=== PATIENT | male | born 1965 | race Caucasian/White ===

== ENCOUNTER 2018-08-04 07:59 | Emergency (ER) | payer BC, SELFPAY ==
[2018-08-04 08:02] VITALS: BP 150/84; PULSE 89; RESP 12; TEMP 37.1; O2SAT 97
--- NOTE | 2018-08-04 09:30 | W.ED.GENAD ---
Discharge Plan Disposition Patient Disposition: HOME Condition: Good Discharge Details Chief Complaint: DentalOral Clinical Impression: Dental infection Primary Care Provider: Darion Sandhu ED Provider: Kevin Tracy Home Meds and New Rx's Prescriptions: New oxycodone-acetaminophen [Percocet] 5-325 mg tablet 1 tab PO .QHS PRN (Reason: pain) Qty: 7 RF: 0 amoxicillin 500 mg capsule 500 mg PO TID Qty: 30 RF: 0 No Action lisinopril-hydrochlorothiazide 1 EACH tablet 1 tab-cap PO DAILY Qty: 90 RF: 4 sildenafil [Viagra] 100 MG tablet 0.5 - 1 tab PO As Directed Qty: 6 RF: 5 Discharge Instructions Additional Instructions: Please f/u with dentist of your choice. Referrals: Segundo Mosher [DENTIST] - Marlena Mendoza DDS [DENTIST] - Luzma Reeder DDS [MD CONSULTING PHYSICIAN] - Medical Decision Making MDM Narrative Medical decision making narrative: Although I do not appreciate an abscess. At this point he is suspicious of occult dental infection. He does have chipped tooth and inflammation at the gum line/cheek. I prescribed Percocet and discussed risk versus benefits, he understood and signed consent. I prescribed Amoxicillin for the infection. Provided dental list and advised to f/u within a month. Advised to return to ED if symptoms worsen. Also advised to hold off on chewing tobacco until infection resolved. HPI - General Adult General Mode of arrival: ambulatory. Date/Time Provider Initiated Documentation: 08/04/18 09:30. Limitations to Documentation: no limitations. Information obtained by: patient. History of Present Illness 53 year old M presents to the emergency department with the chief complaint of Dental infection, described as moderate, Quality is described as aching, and is localized to the mouth (left upper dentition). Patient neck and reports radiation to. Patient started experiencing this day(s) (5) and it has been constant. Patient notes no other symptoms.. Patient did receive the following treatments prior to arrival, NSAID Related Data Previous Rx's Medication Instructions Recorded amoxicillin 500 mg PO TID #30 cap 08/04/18 oxycodone-acetaminophen [Percocet] 1 tab PO .QHS PRN #7 tab 08/04/18 Allergies Allergy/AdvReac Type Severity Reaction Status Date / Time No Known Allergies Allergy Unverified 08/04/18 08:06 General Stated Complaint: DentalOral BALTAZAR: 3 Review of Systems Review of Systems Pain started five days ago and only has gotten worse. Now radiates up the left side of head and down into neck. He does check tobacco and drink alcohol. Denies and previous drug use. Constitutional Reports as per HPI and Reports other Comments: hurts to swallow Eyes Patient Reports system reviewed and no additional complaints, except as docu ENT Denies bleeding gums, Denies halitosis, Denies change in voice, Reports dental pain (left upper dentition) and Reports dysphagia (pain to swallow) Cardiovascular Denies chest pain and Denies dyspnea Respiratory Denies dyspnea Gastrointestinal Reports dysphagia (pain to swallow), Denies nausea and Denies vomiting PFSH Family History Mother No problems noted. Father No problems noted. Grandfather Neoplasm Grandfather No problems noted. Grandmother No problems noted. Grandmother No problems noted. Daughter No problems noted. Brother No problems noted. Brother No problems noted. Brother No problems noted. Son No problems noted. Son No problems noted. Social History Smoking/Tobacco Use Status: Current every day Exam Const General: cooperative, healthy appearing, comfortable and no acute distress HENMT Head: normal to inspection and atraumatic Ears: hearing grossly normal bilaterally, external ears normal and TM's normal bilaterally General nose exam: external nose normal and nares normal Face and sinus: face symmetric, no erythema, no fluctuance and no sinus tenderness Mouth: lip normal, tongue normal, salivary ducts normal, oropharynx normal, moist mucous membranes, no drooling, no muffled voice and no trismus Teeth and gingiva: caries Teeth image: 1. Sharp edge to chipped tooth number 16. Outer gum line is red and swollen with no fluctuate. No abscess identified.Mildly tender to palpate. Throat: posterior oropharynx normal and uvula midline Eyes General: appearance normal, both eyes and all related structures EOM: EOM intact bilaterally Neck Neck: normal visual inspection, full ROM, no lymphadenopathy and supple Resp Effort & Inspection: normal respiratory effort and able to speak in complete sentences Cardio Jugular venous pressure: no JVD Rate: regular rate Rhythm: regular rhythm Heart Sounds: S1 normal and S2 normal Psych Appearance: grossly normal and well kempt Speech and Movement: speech and movement normal Mood: congruent mood Affect: normal affect Attitude: cooperative Thought Process: normal Thought Content: normal Insight: insight good Judgment: judgment good Course Vital Signs Temperature 37.1 C 08/04/18 08:02 Pulse 89 08/04/18 08:02 Respiratory Rate 12 08/04/18 08:02 Blood Pressure 150/84 H 08/04/18 08:02 Pulse Oximetry 97 08/04/18 08:02 Temperature 37.1 C 08/04/18 08:02 Pulse 89 08/04/18 08:02 Respiratory Rate 12 08/04/18 08:02 Blood Pressure 150/84 H 08/04/18 08:02 Pulse Oximetry 97 08/04/18 08:02
--- NOTE | 2018-08-04 10:05 | ED.GENADUL_ITS ---
Discharge Plan Disposition Patient Disposition: HOME Condition: Good Discharge Details Chief Complaint: DentalOral Clinical Impression: Dental infection Primary Care Provider: Darion Sandhu ED Provider: Kevin Tracy Home Meds and New Rx's Prescriptions: New oxycodone-acetaminophen [Percocet] 5-325 mg tablet 1 tab PO .QHS PRN (Reason: pain) Qty: 7 RF: 0 amoxicillin 500 mg capsule 500 mg PO TID Qty: 30 RF: 0 No Action lisinopril-hydrochlorothiazide 1 EACH tablet 1 tab-cap PO DAILY Qty: 90 RF: 4 sildenafil [Viagra] 100 MG tablet 0.5 - 1 tab PO As Directed Qty: 6 RF: 5 Discharge Instructions Additional Instructions: Please f/u with dentist of your choice. Referrals: Segundo Mosher [DENTIST] - Marlena Mendoza DDS [DENTIST] - Luzma Reeder DDS [MD CONSULTING PHYSICIAN] - Medical Decision Making MDM Narrative Medical decision making narrative: Although I do not appreciate an abscess. At this point he is suspicious of occult dental infection. He does have chipped tooth and inflammation at the gum line/cheek. I prescribed Percocet and discussed risk versus benefits, he understood and signed consent. I prescribed Amoxicillin for the infection. Provided dental list and advised to f/u within a month. Advised to return to ED if symptoms worsen. Also advised to hold off on chewing tobacco until infection resolved. HPI - General Adult General Mode of arrival: ambulatory . Date/Time Provider Initiated Documentation: 08/04/18 09:30 . Limitations to Documentation: no limitations . Information obtained by: patient . History of Present Illness 53 year old M presents to the emergency department with the chief complaint of Dental infection, described as moderate, Quality is described as aching, and is localized to the mouth (left upper dentition). Patient neck and reports radiation to. Patient started experiencing this day(s) (5) and it has been constant. Patient notes no other symptoms.. Patient did receive the following treatments prior to arrival, NSAID Related Data Previous Rx's Medication Instructions Recorded amoxicillin 500 mg PO TID #30 cap 08/04/18 oxycodone-acetaminophen [Percocet] 1 tab PO .QHS PRN #7 tab 08/04/18 Allergies Allergy/AdvReac Type Severity Reaction Status Date / Time No Known Allergies Allergy Unverified 08/04/18 08:06 General Stated Complaint: DentalOral BALTAZAR: 3 Review of Systems Review of Systems Pain started five days ago and only has gotten worse. Now radiates up the left side of head and down into neck. He does check tobacco and drink alcohol. Denies and previous drug use. Constitutional Reports as per HPI and Reports other Comments: hurts to swallow Eyes Patient Reports system reviewed and no additional complaints, except as docu ENT Denies bleeding gums, Denies halitosis, Denies change in voice, Reports dental pain (left upper dentition) and Reports dysphagia (pain to swallow) Cardiovascular Denies chest pain and Denies dyspnea Respiratory Denies dyspnea Gastrointestinal Reports dysphagia (pain to swallow), Denies nausea and Denies vomiting PFSH Family History Mother No problems noted. Father No problems noted. Grandfather Neoplasm Grandfather No problems noted. Grandmother No problems noted. Grandmother No problems noted. Daughter No problems noted. Brother No problems noted. Brother No problems noted. Brother No problems noted. Son No problems noted. Son No problems noted. Social History Smoking/Tobacco Use Status: Current every day Exam Const General: cooperative, healthy appearing, comfortable and no acute distress HENMT Head: normal to inspection and atraumatic Ears: hearing grossly normal bilaterally, external ears normal and TM's normal bilaterally General nose exam: external nose normal and nares normal Face and sinus: face symmetric, no erythema, no fluctuance and no sinus tenderness Mouth: lip normal, tongue normal, salivary ducts normal, oropharynx normal, moist mucous membranes, no drooling, no muffled voice and no trismus Teeth and gingiva: caries Teeth image: 2 1. Sharp edge to chipped tooth number 16. Outer gum line is red and swollen with no fluctuate. No abscess identified.Mildly tender to palpate. Throat: posterior oropharynx normal and uvula midline Eyes General: appearance normal, both eyes and all related structures EOM: EOM intact bilaterally Neck Neck: normal visual inspection, full ROM, no lymphadenopathy and supple Resp Effort & Inspection: normal respiratory effort and able to speak in complete sentences Cardio Jugular venous pressure: no JVD Rate: regular rate Rhythm: regular rhythm Heart Sounds: S1 normal and S2 normal Psych Appearance: grossly normal and well kempt Speech and Movement: speech and movement normal Mood: congruent mood Affect: normal affect Attitude: cooperative Thought Process: normal Thought Content: normal Insight: insight good Judgment: judgment good Course Vital Signs Temperature 37.1 C 08/04/18 08:02 Pulse 89 08/04/18 08:02 Respiratory Rate 12 08/04/18 08:02 Blood Pressure 150/84 H 08/04/18 08:02 Pulse Oximetry 97 08/04/18 08:02 Temperature 37.1 C 08/04/18 08:02 Pulse 89 08/04/18 08:02 Respiratory Rate 12 08/04/18 08:02 Blood Pressure 150/84 H 08/04/18 08:02 Pulse Oximetry 97 08/04/18 08:02
== END 2018-08-04 09:55 | disposition home or self-care (01) ==
PROVIDERS: Emergency Provider Nurse Practitioner Family; PCP Family Medicine
DX: K04.7 Periapical abscess without sinus (principal)
CPT/HCPCS: 99283

== ENCOUNTER 2021-05-15 11:24 | Outpatient (CLI) | payer BC, SELFPAY ==
[2021-05-15 13:09] LABS: ALT 197 U/L (16-63); AST 317 U/L (15-37); Albumin 4.1 g/dL (3.4-5.0); Alkaline Phosphatase 101 U/L (46-116); Anion Gap 13.3 mmol/L (3-11); BUN 11 mg/dL (7-18); Bilirubin, Direct 0.1 mg/dL (0.0-0.2); Bilirubin, Total 0.4 mg/dL (0.2-1.0); C-Reactive Protein 0.83 mg/dL (0.0-0.3); CO2 26.7 mmol/L (21.0-32.0); Calcium 10.1 mg/dL (8.5-10.1); Chloride 99 mmol/L (98-107); Glucose 76 mg/dL (74-106); Magnesium 1.9 mg/dL (1.8-2.4); Potassium 4.3 mmol/L (3.5-5.1); Sodium 139 mmol/L (136-145); Total Protein 7.6 g/dL (6.4-8.2)
[2021-05-15 13:10] LABS: D-Dimer 198 ng/mlFEU (<500)
[2021-05-15 13:28] LABS: GGT 59 U/L (15-85)
== END 2021-05-15 11:25 | disposition home or self-care (01) ==
LOC: LOS 11:24
PROVIDERS: Referring Provider Emergency Medicine; Visit Provider Emergency Medicine
DX: I10 Essential (primary) hypertension (principal); M79.604 Pain in right leg; M79.605 Pain in left leg; F10.10 Alcohol abuse, uncomplicated
CPT/HCPCS: 36415; 80048; 80076; 82977; 83735; 85379; 86140

== ENCOUNTER 2022-02-12 16:48 | Outpatient (REF) | payer BC, SELFPAY ==
[2022-02-12 20:14] LABS: ALT 756 U/L (16-63); Albumin 4.2 g/dL (3.4-5.0); Alkaline Phosphatase 104 U/L (46-116); Anion Gap 7.8 mmol/L (3-11); BUN 13 mg/dL (7-18); Bilirubin, Total 1.1 mg/dL (0.2-1.0); CO2 28.2 mmol/L (21.0-32.0); CREATININE 0.9 mg/dL (0.70-1.30); Calcium 9.5 mg/dL (8.5-10.1); Calculated LDL 108 mg/dL (<100); Chloride 96 mmol/L (98-107); Cholesterol 201 mg/dL (<200); Glucose 92 mg/dL (74-106); HDL Cholesterol 72 mg/dL (40-60); Potassium 4.3 mmol/L (3.5-5.1); Sodium 132 mmol/L (136-145); Total Protein 7.6 g/dL (6.4-8.2); Triglyceride 109 mg/dL (<150)
[2022-02-12 20:47] LABS: AST 2474 U/L (15-37)
[2022-02-12 21:51] LABS: FREE T4 1.01 ng/dL (0.76-1.46)
[2022-02-12 22:45] LABS: Creatine Kinase > 10000 U/L (39-308)
[2022-02-13 18:25] LABS: PSA, Screening 3.1 ng/mL (0.0-3.5)
[2022-02-14 09:42] LABS: HIV-1/2 Ag & Ab Screen Negative (Negative)
== END 2022-02-12 16:49 | disposition home or self-care (01) ==
LOC: LBN 16:48
PROVIDERS: Visit Provider Family Medicine
DX: I10 Essential (primary) hypertension (principal); M79.604 Pain in right leg; M79.605 Pain in left leg; M79.18 Myalgia, other site; Z13.6 Encounter for screening for cardiovascular disorders; Z11.4 Encounter for screening for human immunodeficiency virus [HIV]; Z12.5 Encounter for screening for malignant neoplasm of prostate
CPT/HCPCS: 80053; 80061; 82550; 84153; 85652; 87389; 84439; 84443

== ENCOUNTER 2022-02-14 03:32 | Outpatient (CLI) | payer BC, SELFPAY ==
[2022-02-14 09:12] LABS: Abs Immature Grans 0.03 10^3/uL (0.0-0.06); Absolute Basophil Count 0.08 10^3/uL (0.0-0.2); Absolute Eosinophil Count 0.58 10^3/uL (0.0-0.7); Absolute Lymphocyte Count 1.38 10^3/uL (1.2-3.4); Absolute Monocyte Count 0.85 10^3/uL (0.1-0.8); Absolute Neutrophil Count 4.86 10^3/uL (1.2-6.7); ESR 1 mm/hr (0-20); Eosinophils % 7.5; HCT 36.6 % (40.0-50.0); Immature Grans % 0.4; Lymphocytes % 17.7; MCH 32.8 pg (27.0-33.0); MCHC 35.5 % (32.0-36.0); MCV 92.4 fL (80-95); MPV 9.9 fL (8.0-11.0); Monocytes % 10.9; Neutrophils % 62.5; Nucleated RBC 0 %; Platelet Count 256 10^3/uL (130-400); RBC 3.96 10^6/uL (4.36-5.78); RDW 11.3 % (11.8-14.1); RDW-SD 38.1 fL; WBC 7.78 10^3/uL (4.4-10.8)
[2022-02-14 09:15] LABS: Bilirubin Negative (Negative); Blood Moderate (Negative); Clarity Clear (Clear); Glucose Negative (Negative); Ketones Negative (Negative); Leukocyte Esterase Negative (Negative); Nitrite Negative (Negative); Specific Gravity 1.015 (1.005-1.025); Urobilinogen 0.2 EU/dL (Up TO 0.2)
[2022-02-14 09:28] LABS: Bacteria Rare HPF (Negative); C & S Indicated? No; Casts Negative LPF (Negative); Crystals Negative HPF (Negative); Epithelial Cells Few HPF (Negative); Mucus Trace (Negative); WBC 0-2 HPF (0-5)
[2022-02-14 10:12] LABS: ALT 623 U/L (16-63); Albumin 3.9 g/dL (3.4-5.0); Alkaline Phosphatase 93 U/L (46-116); Anion Gap 9.3 mmol/L (3-11); BUN 18 mg/dL (7-18); Bilirubin, Total 0.4 mg/dL (0.2-1.0); CO2 28.7 mmol/L (21.0-32.0); Calcium 9.9 mg/dL (8.5-10.1); Chloride 99 mmol/L (98-107); Glucose 68 mg/dL (74-106); Sodium 137 mmol/L (136-145); Total Protein 7.2 g/dL (6.4-8.2)
[2022-02-14 10:26] LABS: AST 852 U/L (15-37)
[2022-02-14 10:27] LABS: C-Reactive Protein 1.94 mg/dL (0.0-0.3); Creatine Kinase > 10000 U/L (39-308); GGT 69 U/L (15-85)
[2022-02-14 10:50] LABS: Ferritin 341 ng/mL (26-388)
[2022-02-15 09:42] LABS: Hepatitis B Surface Ag Negative (Negative)
[2022-02-15 10:25] LABS: HBs Antibody, Qual Negative (See Note); HBs Antibody, Quant <3.1 mIU/mL (See Note); Hepatitis B Core Antibody Negative (Negative); Hepatitis B surface Ag Negative (Negative); Hepatitis C Ab w Rflx HCV PCR Negative (Negative)
[2022-02-15 11:22] LABS: Hep A Total Ab w Rflx IgM Negative (Negative)
== END 2022-02-14 03:33 | disposition home or self-care (01) ==
LOC: LBO 03:32
PROVIDERS: Emergency Medicine; Visit Provider Family Medicine
DX: R79.89 Other specified abnormal findings of blood chemistry (principal); I10 Essential (primary) hypertension; M79.10 Myalgia, unspecified site; Z11.59 Encounter for screening for other viral diseases; Z13.6 Encounter for screening for cardiovascular disorders; G72.9 Myopathy, unspecified; R74.8 Abnormal levels of other serum enzymes
CPT/HCPCS: 36415; 80053; 80076; 82550; 85027; 85652; 86704; 86706; 86709; 86803; 87340; 81003; 81015; 82728; 82977; 85025; 86140

== ENCOUNTER 2022-02-28 02:10 | Outpatient (CLI) | payer BC, SELFPAY ==
[2022-02-28 09:24] LABS: HGB 13.3 g/dL (13.5-17.5); MCH 31.7 pg (27.0-33.0); MCHC 34.1 % (32.0-36.0); MCV 93.1 fL (80-95); MPV 9.7 fL (8.0-11.0); Platelet Count 299 10^3/uL (130-400); RBC 4.19 10^6/uL (4.36-5.78); RDW 11.2 % (11.8-14.1); RDW-SD 37.9 fL
[2022-02-28 10:41] LABS: ALT 109 U/L (16-63); AST 96 U/L (15-37); Albumin 4.1 g/dL (3.4-5.0); Alkaline Phosphatase 88 U/L (46-116); Bilirubin, Direct 0.1 mg/dL (0.0-0.2); Bilirubin, Total 0.7 mg/dL (0.2-1.0); Creatine Kinase 4203 U/L (39-308); Total Protein 7.2 g/dL (6.4-8.2)
[2022-03-01 10:03] LABS: Hepatitis C Ab w Rflx HCV PCR Negative (Negative)
== END 2022-02-28 02:11 | disposition home or self-care (01) ==
LOC: LBO 02:10
PROVIDERS: Emergency Medicine; PCP Family Medicine; Visit Provider Family Medicine
DX: R79.89 Other specified abnormal findings of blood chemistry; R74.8 Abnormal levels of other serum enzymes; M79.18 Myalgia, other site; G72.89 Other specified myopathies; Z11.59 Encounter for screening for other viral diseases; I10 Essential (primary) hypertension
CPT/HCPCS: 36415; 80076; 82550; 85027; 86803

== ENCOUNTER 2023-09-10 11:36 | Outpatient (CLI) | payer OTHER, SELFPAY ==
[2023-09-10 12:43] LABS: ALT 58 U/L (16-63); AST 29 U/L (15-37); Alkaline Phosphatase 96 U/L (46-116); Anion Gap 6.1 mmol/L (3-11); BUN 11 mg/dL (7-18); Bilirubin, Direct 0.1 mg/dL (0.0-0.2); Bilirubin, Total 0.5 mg/dL (0.2-1.0); CO2 28.9 mmol/L (21.0-32.0); CREATININE 0.8 mg/dL (0.70-1.30); Calcium 10.2 mg/dL (8.5-10.1); Chloride 100 mmol/L (98-107); Estimated GFR 102.58 (mL/min/1.73m2); Glucose 88 mg/dL (74-106); Potassium 3.8 mmol/L (3.5-5.1); Sodium 135 mmol/L (136-145); Total Protein 8.1 g/dL (6.4-8.2)
== END 2023-09-10 11:37 | disposition home or self-care (01) ==
LOC: LOS 11:36
PROVIDERS: PCP Family Medicine; Referring Provider Family Medicine; Visit Provider Family Medicine
DX: G72.89 Other specified myopathies (principal); E87.1 Hypo-osmolality and hyponatremia
CPT/HCPCS: 36415; 80048; 80076

== ENCOUNTER 2024-02-21 14:12 | Outpatient (REF) | payer OTHER, SELFPAY ==
[2024-02-21 15:57] LABS: Abs Immature Grans 0.05 10^3/uL (0.0-0.06); Absolute Basophil Count 0.13 10^3/uL (0.0-0.2); Absolute Eosinophil Count 0.44 10^3/uL (0.0-0.7); Absolute Monocyte Count 0.57 10^3/uL (0.1-0.8); Absolute Neutrophil Count 6.23 10^3/uL (1.2-6.7); Basophils % 1.6; Eosinophils % 5.4; HCT 41.2 % (40.0-50.0); HGB 14.9 g/dL (13.5-17.5); Immature Grans % 0.6; Lymphocytes % 9.7; MCH 32.4 pg (27.0-33.0); MCHC 36.2 % (32.0-36.0); MCV 90 fL (80-95); MPV 10.2 fL (8.0-11.0); Monocytes % 6.9; Neutrophils % 75.8; Platelet Count 296 10^3/uL (130-400); RDW 11.4 % (11.8-14.1); RDW-SD 37.2 fL; WBC 8.22 10^3/uL (4.4-10.8)
[2024-02-21 16:08] LABS: ALT 136 U/L (16-63); AST 134 U/L (15-37); Albumin 3.9 g/dL (3.4-5.0); Alkaline Phosphatase 100 U/L (46-116); Anion Gap 11.3 mmol/L (3-11); BUN 10 mg/dL (7-18); Bilirubin, Total 0.5 mg/dL (0.2-1.0); CO2 25.7 mmol/L (21.0-32.0); CREATININE 0.8 mg/dL (0.70-1.30); Calcium 9.7 mg/dL (8.5-10.1); Chloride 93 mmol/L (98-107); Estimated GFR 102.58 (mL/min/1.73m2); GGT 71 U/L (15-85); Glucose 99 mg/dL (74-106); Magnesium 1.9 mg/dL (1.8-2.4); Sodium 130 mmol/L (136-145); Total Protein 7.4 g/dL (6.4-8.2)
== END 2024-02-21 14:13 | disposition home or self-care (01) ==
LOC: LBN 14:12
PROVIDERS: PCP Family Medicine; Visit Provider Nurse Practitioner Family
DX: R60.0 Localized edema (principal)
CPT/HCPCS: 80053; 82977; 83735; 85025

== ENCOUNTER 2024-02-26 11:22 | Outpatient (CLI) | payer OTHER, SELFPAY ==
[2024-02-26 13:18] LABS: Creatine Kinase 8101 U/L (39-308)
== END 2024-02-26 11:23 | disposition home or self-care (01) ==
LOC: LOS 11:22
PROVIDERS: PCP Family Medicine; Referring Provider Family Medicine; Visit Provider Family Medicine
DX: E83.42 Hypomagnesemia (principal); G72.89 Other specified myopathies
CPT/HCPCS: 36415; 82550; 83735

== ENCOUNTER 2024-04-01 16:04 | Outpatient (REF) | payer BC, SELFPAY ==
[2024-04-01 21:34] LABS: Calculated LDL 82 mg/dL (<100); Cholesterol 191 mg/dL (<200); HDL Cholesterol 90 mg/dL (40-60); TSH (W/Ref FT4) 2.13 uIU/mL (0.36-3.74); Triglyceride 95 mg/dL (<150)
[2024-04-01 22:05] LABS: Creatine Kinase 139 U/L (39-308)
== END 2024-04-01 16:05 | disposition home or self-care (01) ==
LOC: LBN 16:04
PROVIDERS: PCP Family Medicine; Visit Provider Family Medicine
DX: G72.89 Other specified myopathies (principal); E03.9 Hypothyroidism, unspecified; E78.5 Hyperlipidemia, unspecified
CPT/HCPCS: 80061; 82550; 84443

== ENCOUNTER 2024-11-22 17:34 | Emergency (ER) | payer BC, SELFPAY ==
[2024-11-22] VITALS (27 sets, daily range): BP systolic 136–181; BP diastolic 65–109; PULSE 68–84; RESP 12–20; O2SAT 96–100
--- NOTE | 2024-11-22 17:45 | DI.CT_ITS ---
Exam(s) CT HEAD CERVICAL SPINE WO EXAM: CT HEAD CERVICAL SPINE WO CLINICAL HISTORY: head trauma. TECHNIQUE: Imaging Protocol: Axial computed tomography images with coronal and sagittal reformatted images were created and reviewed COMPARISON: No exams were available for comparison FINDINGS: Head CT Ventricles and Extra axial spaces: Normal in size and morphology for the patient's age. Hemorrhage: None. Cerebral parenchyma: No evidence of mass or acute infarct. Midline shift: None. Brainstem/Cerebellum: Normal. Calvarium: Nondisplaced fracture of the left zygoma. No additional fractures are identified. No sku ll fracture. Visualized Paranasal sinuses/Mastoids: Mucous retention cyst at the floor of the left maxillary sinus . Mild mucous retention in ethmoid sinuses. Mild mucosal thickening of the right sphenoid sinus. M inimal mucosal thickening of the right maxillary sinus. Soft tissues: Left frontoparietal scalp swelling. Cervical Spine CT BONES: Vertebral body heights are maintained. Alignment is normal. There is no evidence of acute frac ture. 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 No significant degenerative changes. SOFT TISSUES: No paraspinal hematoma. The airway appears intact. No pneumothorax is seen at the lung apices. IMPRESSION: Head CT: No acute intracranial abnormality.Nondisplaced fracture of the left zygoma. Left scalp swel ling. Chronic sinus disease. C-spine CT: No acute abnormality. Findings called to Dr. Novoa of the emergency department. RADIATION DOSE DELIVERED: Total DLP DATA REPOSITORY: All CT scans at this facility are submitted to the National Radiology Data Registry (NRDR) Dose Index Registry (DIR) with the [employer] ([employer]). RADIATION OPTIMIZATION: All CT scans at this facility use at least one of these dose optimization te chniques: automated exposure control; mA and/or kV adjustment per patient size (includes targeted exa ms where dose is matched to clinical indication); or iterative reconstruction.
[2024-11-22 17:58] LABS: Abs Immature Grans 0.04 10^3/uL (0.0-0.06); Absolute Basophil Count 0.11 10^3/uL (0.0-0.2); Absolute Eosinophil Count 0.54 10^3/uL (0.0-0.7); Absolute Lymphocyte Count 1.52 10^3/uL (1.2-3.4); Absolute Monocyte Count 0.72 10^3/uL (0.1-0.8); Absolute Neutrophil Count 3.81 10^3/uL (1.2-6.7); Basophils % 1.6 %; HCT 42.3 % (40.0-50.0); HGB 14.6 g/dL (13.5-17.5); Immature Grans % 0.6 %; Lymphocytes % 22.6 %; MCHC 34.5 % (32.0-36.0); MCV 93 fL (80-95); MPV 9.2 fL (8.0-11.0); Monocytes % 10.7 %; Neutrophils % 56.5 %; Platelet Count 251 10^3/uL (130-400); RBC 4.56 10^6/uL (4.36-5.78); RDW 11.7 % (11.8-14.1); RDW-SD 39.9 fL; WBC 6.74 10^3/uL (4.4-10.8)
[2024-11-22 18:13] LABS: ALT 73 U/L (16-63); AST 59 U/L (15-37); Albumin 4.2 g/dL (3.4-5.0); Alkaline Phosphatase 100 U/L (46-116); Anion Gap 13.3 mmol/L (3-11); BUN 9 mg/dL (7-18); Bilirubin, Total 0.37 mg/dL (0.2-1.0); CO2 22.7 mmol/L (21.0-32.0); CREATININE 0.7 mg/dL (0.70-1.30); Calcium 9.1 mg/dL (8.5-10.1); Chloride 96 mmol/L (98-107); ETHANOL BLOOD 243.5 mg/dL (<10); Estimated GFR 106.14 (mL/min/1.73m2); Glucose 93 mg/dL (74-106); Lipase 60 U/L (<78); Potassium 3.5 mmol/L (3.5-5.1); Sodium 132 mmol/L (136-145); Total Protein 8.2 g/dL (6.4-8.2)
--- NOTE | 2024-11-22 18:52 | DI.RAD_ITS ---
Exam(s) XR CHEST 1V IN DI DEPT EXAM: XR CHEST 1V IN DI DEPT CLINICAL HISTORY: trauma TECHNIQUE: 2D digital imaging was performed. COMPARISON: CT CT ABDOMEN PELVIS W from 11/22/2024 FINDINGS: Exam limited by under penetration. There are overlying monitoring leads. LUNGS: Clear. No pleural abnormality seen. HEART: Normal size. AORTA: Normal diameter. BONES: Unremarkable for age. No acute rib fracture. Soft tissues: Unremarkable. IMPRESSION: No acute findings. DATA REPOSITORY: RADIATION DOSE DELIVERED:
--- NOTE | 2024-11-22 18:53 | DI.CT_ITS ---
Exam(s) CT ABDOMEN PELVIS W EXAM: CT ABDOMEN PELVIS W CLINICAL HISTORY: trauma. TECHNIQUE: Imaging Protocol: Axial computed tomography images with coronal and sagittal reformatted images were created and reviewed CONTRAST MATERIAL: Intravenous: Omnipaque 350 Contrast volume:100 ml Oral: no COMPARISON: No exams were available for comparison FINDINGS: ABDOMEN and PELVIS: The exam is limited by streak artifact secondary to patient arm positioning. Lung Bases: No acute findings. Liver: Normal density. No evidence of laceration. Gallbladder and biliary tract: No radiodense calculus. No wall thickening or pericholecystic fluid. No biliary dilation. Pancreas: Normal density. No abnormal calcifications or inflammatory process. No evidence of mass. Spleen: Normal. Kidneys: Normal size, contour and axis. No radiodense stones. No obstructive uropathy. No suspicious masses seen. Adrenal glands: No masses seen. Vasculature: Abdominal aorta non-dilated. No significant atherosclerotic changes of the abdominal ao rta. The common and superficial femoral arteries as well as internal iliac arteries show significant calcification. Soft tissues: Tiny fat containing umbilical hernia. Bladder: Over distended but unremarkable. No gross wall thickening. No calculi.No focal mass. Bowel: No obstruction. No bowel wall thickening. Appendix normal. Peritoneal cavity: No ascites. No focal collection. No mesenteric inflammatory response. No free air . Bones: Old lateral right lower rib fracture. Old posterior lower left rib fracture. No acute fractu res identified. Reproductive organs: Unremarkable. Lymph nodes: No pathologically enlarged lymph nodes. IMPRESSION:: No acute abnormality in the abdomen or pelvis. RADIATION DOSE DELIVERED: Total DLP DATA REPOSITORY: All CT scans at this facility are submitted to the National Radiology Data Registry (NRDR) Dose Index Registry (DIR) with the [employer] ([employer]). RADIATION OPTIMIZATION: All CT scans at this facility use at least one of these dose optimization te chniques: automated exposure control; mA and/or kV adjustment per patient size (includes targeted exa ms where dose is matched to clinical indication); or iterative reconstruction.
--- NOTE | 2024-11-22 19:19 | W.ED.GENAD ---
Discharge Plan Disposition Patient Disposition: Home Condition: Stable Discharge Details Clinical Impression: Alcohol abuse, Trauma, Zygoma fracture, Contusion of forehead Primary Care Provider: Malick Ruano ED Provider: Clay Novoa Home Meds and New Rx's Prescriptions: No Action sildenafil [Viagra] 100 mg tablet 100 mg PO As Directed Qty: 30 3RF Rx Instructions: 1/2 to 1 tab 2 hours before intercourse acamprosate 333 mg tablet,delayed release (DR/EC) 333 mg PO BID Qty: 60 2RF Rx Instructions: administer with mid-day and evening meals lisinopril-hydrochlorothiazide 20-12.5 mg tablet 1 tab PO DAILY Qty: 90 3RF Discharge Instructions Instructions: Minor Head Injury, Adult ED Additional Instructions: Your fall tonight resulted in a fracture of your left side cheekbone. This is not displaced and will not likely need surgery but you have been referred to plastic surgery at [facility] for follow-up and reevaluation. They will contact you with an appointment Please do not drink alcohol to excess You will likely be fairly sore tomorrow after significant fall Please take Motrin and Tylenol and drink lots of fluids. Stand Alone Forms: Work Release HPI General Date/Time Provider Initiated Documentation: 11/22/24 17:50. Limitations to Documentation: physical limitation. Information obtained by: patient, family and EMS. HPI Narrative: 59-year-old gentleman with past medical history of hypertension and alcohol abuse presents for evaluation after falling down the stairs. Patient reports that he had had about 6 beers today and fell down the stairs in his house. He is unable to remember any additional things regarding this event but he states that he feels completely fine. His reports that he fell fairly hard down their stairs. There was loss of consciousness. C-collar was placed by EMS. Related Data Home Medications ?Medication ?Instructions ?Recorded ?Confirmed sildenafil 100 mg tablet (Viagra) 100 mg PO As Directed #30 tab-caps 09/10/23 11/22/24 acamprosate 333 mg tablet,delayed 333 mg PO BID #60 tabs 04/01/24 11/22/24 release lisinopril 20 1 tab PO DAILY #90 tab-caps 07/27/24 11/22/24 mg-hydrochlorothiazide 12.5 mg tablet Previous Rx's ?Medication ?Instructions ?Recorded sildenafil 100 mg tablet (Viagra) 100 mg PO As Directed #30 tab-caps 09/10/23 acamprosate 333 mg tablet,delayed 333 mg PO BID #60 tabs 04/01/24 release lisinopril 20 1 tab PO DAILY #90 tab-caps 07/27/24 mg-hydrochlorothiazide 12.5 mg tablet Allergies Allergy/AdvReac Type Severity Reaction Status Date / Time No Known Allergies Allergy Unverified 11/22/24 17:40 General Stated Complaint: Trauma BALTAZAR: 2 Exam Narrative Exam Narrative: Review of Systems: All systems reviewed & are unremarkable except as noted in HPI and below Contusion to left forehead left facial swelling, tenderness, no instability, no malocclusion, swelling over the left parietal scalp No hemotympanum PERRL, normal conjunctiva No dental trauma C-collar in place no midline C-spine tenderness step-off or deformity RRR No chest wall tenderness Unlabored respiratory effort clear bilaterally Nondistended abdomen , soft nontender no bruising noted Extremities w/o deformitY no focal neurologic deficits Clinically intoxicated with slow thickened speech Course Vital Signs Vital signs: Vital Signs Pulse 83 11/22/24 17:35 Respiratory Rate 16 11/22/24 17:35 Blood Pressure 181/109 H 11/22/24 17:35 Pulse Oximetry 99 11/22/24 17:35 Pulse 77 11/22/24 19:01 Pulse 80 11/22/24 19:01 Respiratory Rate 14 11/22/24 19:01 Respiratory Effort Normal 11/22/24 18:54 Respiratory Depth Normal 11/22/24 18:54 Respiratory Pattern Normal 11/22/24 18:54 Blood Pressure 149/82 H 11/22/24 19:01 Blood Pressure Mean 105 11/22/24 19:01 Pulse Oximetry 98 11/22/24 19:01 Pain Level 0 11/22/24 17:35 Lab/Test Results Lab/Test Results: Laboratory Tests Range/Units 11/22/24 17:49 WBC (4.4-10.8) 10^3/uL 6.74 RBC (4.36-5.78) 10^6/uL 4.56 Hgb (13.5-17.5) g/dL 14.6 Hct (40.0-50.0) % 42.3 MCV (80-95) fL 93 MCH (27.0-33.0) pg 32.0 MCHC (32.0-36.0) % 34.5 RDW (11.8-14.1) % 11.7 L Plt Count (130-400) 10^3/uL 251 MPV (8.0-11.0) fL 9.2 Immature Gran % % 0.6 Neutrophils % % 56.5 Lymphocytes % % 22.6 Monocytes % % 10.7 Eosinophils % % 8.0 Basophils % % 1.6 Nucleated RBC % (0.0-0.3) % 0.0 Absolute Neutrophils (1.2-6.7) 10^3/uL 3.81 Absolute Lymphocytes (1.2-3.4) 10^3/uL 1.52 Absolute Monocytes (0.1-0.8) 10^3/uL 0.72 Absolute Eosinophils (0.0-0.7) 10^3/uL 0.54 Absolute Basophils (0.0-0.2) 10^3/uL 0.11 Sodium (136-145) mmol/L 132 L Potassium (3.5-5.1) mmol/L 3.5 Chloride (98-107) mmol/L 96 L Carbon Dioxide (21.0-32.0) mmol/L 22.7 Anion Gap (3-11) mmol/L 13.3 H BUN (7-18) mg/dL 9 Creatinine (0.70-1.30) mg/dL 0.7 Est GFR (CKD-EPI 2020) (mL/min/1.73m2) 106.14 Glucose (74-106) mg/dL 93 Calcium (8.5-10.1) mg/dL 9.1 Magnesium (1.8-2.4) mg/dL 2.0 Total Bilirubin (0.2-1.0) mg/dL 0.37 AST (15-37) U/L 59 H ALT (16-63) U/L 73 H Alkaline Phosphatase (46-116) U/L 100 Total Protein (6.4-8.2) g/dL 8.2 Albumin (3.4-5.0) g/dL 4.2 Lipase (<78) U/L 60 Ethyl Alcohol (<10) mg/dL 243.5 H Medical Decision Making Emergent evaluation of trauma after a fall. Complicated by alcohol abuse. Patient does appear to be clinically intoxicated and does endorse to drinking alcohol tonight. A c-collar is in place. Concern for head trauma. Denies any anticoagulant use. No other signs of trauma noted on examination Blood work reviewed no leukocytosis or anemia. Electrolytes without significant derangement, mild elevation in AST and ALT. Lipase is not elevated. Alcohol is 243. I discussed the CT imaging with the radiologist. He does have a left zygoma fracture that is nondisplaced. No other intracranial traumatic injury. C-spine unremarkable. Chest x-ray reviewed and independently interpreted, no acute findings. CT of his abdomen pelvis does not reveal any acute bleeding or other traumatic injuries. Patient updated on findings. at bedside now. Will observe until clinical sobriety and able to go home. 1999 Patient is continuing to sober appropriately, his c-collar was cleared. He still states that he has no complaints. 2024 Patient is ambulatory around the emergency department without ataxia or difficulty. At this time he and his feel comfortable being discharged home. Will refer to plastic surgery at [facility] for the zygoma fracture. Advised to avoid drinking alcohol to excess. Motrin and Tylenol as needed for discomfort. Quality:SDOH Health Related Social Needs: No Data to Display [facility] All Active Problems (Updated 11/22/24 @ 20:22 by Clay Novoa MD) Contusion of forehead (Acute) Zygoma fracture (Acute) Trauma (Acute) Elevated creatine kinase (Acute) Myositis (Acute) Alcohol abuse (Chronic) Rhabdomyolysis (Acute) Pitted keratolysis (Acute) Elevated LFTs (Acute) 04/2021 Leg pain (Acute) Smokeless tobacco use (Acute) 01/2022-Daily tobacco chewing Essential hypertension (Acute 05/15/10) Hearing loss (Acute) MILD Family History Mother No problems noted. Father , ACCIDENTAL at age 21. No problems noted. Maternal Grandfather Cancer Paternal Grandfather No problems noted. Maternal Grandmother No problems noted. Paternal Grandmother No problems noted. Daughter No problems noted. Brother No problems noted. Brother No problems noted. Brother No problems noted. Son No problems noted. Son No problems noted. Social History (Updated 09/11/23 @ 08:40 by Joelle Lloyd) Smoking/Tobacco Use Status: Current every day Tobacco Type: smokeless tobacco Smokeless tobacco user: chewing tobacco Quit status: not considering quitting Second Hand Exposure: Yes Smoking risk assessment performed?: Yes Alcohol Intake: current Alcohol Intake frequency: a few times a week Alcohol type: beer Drug use: Never Substance use type: does not use Adopted: No Caregiver/Support person: No Foster care: No Household members: spouse Housing: house Number of Children: 3 number of grandchildren: 6 Communication Needs: Hard of Hearing Education Level: high school Do you need help understanding health information?: Never current occupation: Maintenance Pets and animals: No Sexually active: Yes Do you think of yourself as: straight/heterosexual Current gender identity: male What is your relationship status?: How often do you talk on the phone with friends or family?: once per week How often do you get together with friends or relatives?: three or more times per week How often do you attend judaism or roman catholic services?: 1-3 times per year Do you belong to any clubs or organized social groups?: no Panel score (0-1 are the most socially isolated patients): 2 What type of physical activity do you participate in: other Details: work Duration: < 15 minutes/day Frequency: daily Mercedez/Presybeterian: Scientology Special mercedez needs: No Agree to transfusion: No Seatbelt use: always Helmet use: Yes Helmet use: always Drive intox or ride w/intox otr refrigerated cdl truck driver: Yes Drive intox or w/intox otr refrigerated cdl truck driver: rarely Working smoke detector in home: Yes Carbon monox detector in home: No Firearms in home: Yes Firearms unloaded and locked: Yes Do you feel safe at home: Yes Do you feel safe in your relationship?: Yes Victim of physical abuse: No Victim of emotional abuse: No Victim of sexual abuse: No Would you like helpful sources: No PAWSS Have you Been Recently Intoxicated or Drunk Within the Last 30 days?: Yes Have you Ever Experienced Previous Episodes of Alcohol Withdrawal?: No Have you ever Experienced Withdrawal Seizures?: No Have you ever Experienced Delirium Tremens(DT)s?: No Have you ever undergone Alcohol Rehabilitation Treatment (i.e, inpt ot outpatient treatment programs)?: No Have you ever Experienced Blackouts?: No Have you ever Combined Alcohol with other Downers within the last 90 days?: No Have you ever Combined Alcohol with any other Substance of Abuse during the last 90 days?: No Positive Blood Alcohol level on Presentation? [PCS.BAL]: No Evidence of Increased Autonomic Activity (i.e. HR>120, tremor, sweating, agitation, nausea)?: No Result: 1
--- OUTSIDE RECORDS SUMMARY | 2024-11-22 19:26 | XMS_ITS | Encounter Summary ---
Author Organization [facility] Address [address] [place] [address] Care Team Providers Care Nuclear Unit Operator Name Role Phone Unavailable Primary Care Provider Unavailabl e Encounter Details Date Type Department Care Team (Late st Contact Info) Description 02/13/2022 Lab Requisition [facility] Pathology & Laboratory Medicine - [facility] [address] [place] [address] Outr Resulting Lab, Provider Social History Tobacco Use Types Packs/Day Years Used Date Smoking Tobacco: Never Assessed Sex and Gender Information Value Date Recorded Sex Assigned at Not on file Legal Sex Male 20:35 EDT Gender Identity Not on file Sexual Orientation Not on file documented as of this encounter Plan of Treatment Not on file documented as of this encounter Procedures Procedure Name Priority Date/Time Associated Diagnosis Comments HIV 1/2 ANTIGEN AND ANTIBODY, 4TH GENERATION Routine 02/12/2022 10:45 EDT documented in this encounter Results * HIV 1/2 ANTIGEN AND ANTIBODY, 4TH GENERATION (02/12/2022 10:45 EDT) HIV 1 and 2 Antibody/p24 Antigen, 4th Generation Negative Negative 02/14/2022 9:37 EDT [facility] Comment:If acute HIV-1 infec tion is suspected in a high risk patient, submit plasma specimen for HIV-1 RNA quantitation test. Blood VENOUS BLOOD / Unknown 02/12/2022 10:45 EDT 02/13/2022 16:46 EDT Narrative [facility] - 02/14/2022 9:37 EDT Fourth Generation assay performed on the Siemens [employer]aur XPT. us Provider Outr Resulting Lab IMMUNOLOGY AND SEROL OGY ORDERABLES Final Result [facility] [address] [place] [address] documented in this encounter Visit Diagnoses Not on filedocumented in this encounter
--- OUTSIDE RECORDS SUMMARY | 2024-11-22 19:26 | XMS_ITS | Encounter Summary ---
[place] [address] Care Team Providers Care Battery Inspector Name Role Phone Malick Ruano MD Primary Care Provider [phone] Reason for Referral * Consultation (Routine) - Closed Specialty Diagnoses / Procedures Referred By Mya t Referred To Contact Rheumatology Diagnoses Myositis, unspecified myositis type, unspecified site Malick Ruano MD [address] [place] [address] [facility] [address] [place] [id number] Referral ID Status Reason Start Date Expiration Date V isits Requested Visits Authorized [id number] Closed Consult, Test & Treat PCP Updated and/or Approved 03/05/2024 03/05/2025 6 0 Encounter Details Date Type Department Care Team (Late st Contact Info) Description 03/05/2024 Transcribe Orders eDH Incoming Referrals [phone] Malick Ruano MD [address] [place], [place] [id number] Myositis, unspecified myositis type, unspecified site Social History Tobacco Use Types Packs/Day Years Used Date Smoking Tobacco: Never Assessed Sex and Gender Information Value Date Recorded Sex Assigned at Not on file Gender Identity Not on file Sexual Orientation Not on file documented as of this encounter Plan of Treatment Scheduled Referrals Name Type Priority Associated Diagnoses Orde r Schedule Referral to Rheumatology Outpatient Referral Routine Myositis, Unspecified Myositis Type, Unspecified Site Ordered: 03/05/2024 documented as of this encounter Visit Diagnoses Diagnosis Myositis, unspecified myositis type, unspecified site documented in this encounter Care Teams Battery Inspector Relationship Specialty Start Date End Date Malick Ruano MD [address] [place] [address] PCP - General Family Medicine 03/05/24 documented as of this encounter
--- OUTSIDE RECORDS SUMMARY | 2024-11-22 19:26 | XMS_ITS | Referral Summary ---
Author Organization [facility] Address [address] [place] [address] Care Team Providers Care Nonprofit Manager Name Role Phone Unavailable Primary Care Provider Unavailabl e Social History Tobacco Use Types Packs/Day Years Used Date Smoking Tobacco: Never Assessed Sex and Gender Information Value Date Recorded Sex Assigned at Not on file Legal Sex Male 20:35 EDT Gender Identity Not on file Sexual Orientation Not on file Plan of Treatment Not on file Procedures Procedure Name Priority Date/Time Associated Diagnosis Comments HEPATITIS C AB W REFLEX TO HCV RNA BY PCR Routine 02/28/2022 9:17 EDT from Last 3 Months or Most Recently Relevant to Health Maintenance Results * HEPATITIS C AB W REFLEX TO HCV RNA BY PCR (02/28/2022 9:17 EDT) Hep C Antibody Negative Negative 03/01/2022 9:59 EDT [facility] Blood VENOUS BLOOD / Unknown 02/28/2022 9:17 EDT 02/28/2022 17:29 EDT us Provider Outr Resulting Lab CHEMISTRY & BLOOD GA S ORDERABLES Final Result [facility] [address] [place] [address] from Last 3 Months or Most Recently Relevant to Health Maintenance
--- OUTSIDE RECORDS SUMMARY | 2024-11-22 19:26 | XMS_ITS | Encounter Summary ---
Author Organization [facility] Address [address] [place] [address] Care Team Providers Care Winch Derrick Operator Name Role Phone Unavailable Primary Care Provider Unavailabl e Encounter Details Date Type Department Care Team (Late st Contact Info) Description 02/14/2022 Lab Requisition [facility] Pathology & Laboratory Medicine - [facility] [address] [place] [address] Outr Resulting Lab, Provider Social History Tobacco [...] Procedure Name Priority Date/Time Associated Diagnosis Comments CHRONIC HEPATITIS PROFILE, UNKNOWN TYPE Routine 02/14/2022 9:00 EDT documented in this encounter Results * CHRONIC HEPATITIS PROFILE, UNKNOWN TYPE (02/14/2022 9:00 EDT) Hep B Surface Ag Negative Negative 02/16/20 10:19 EDT [facility] Hep B Surface Ab, Quantitative <3.1 See Note mIU/mL 02/15/2022 10:19 EDT [facility] Comment: Reference Range for Hep B Surface Ab, Quant: Positive: >= 10.0 mIU/mL Negative: ??< 10.0 mIU/mL Patient is presumed to not be immune to infection with Hepatitis B Virus. Hep B Surface Ab, Qualitative Negative See Note 02/15/2022 10:19 EDT [facility] Comment: Reference Range for Hep B Surface Ab, Qual: Unvaccinated: ??Negative Vaccinated: ??Positive Hepatitis B Core Ab, Total Negative Negative 02/15/2022 10:19 EDT [facility] Hep C Antibody Negative Negative 02/15/2022 10:19 EDT [facility] Blood VENOUS BLOOD / Unknown 02/14/2022 9:00 EDT 02/14/2022 21:43 EDT us Provider Outr Resulting Lab CHEMISTRY & BLOOD GA S ORDERABLES Final Result [facility] [address] [place] [address] documented in this encounter Visit Diagnoses Not on filedocumented in this encounter
--- OUTSIDE RECORDS SUMMARY | 2024-11-22 19:26 | XMS_ITS | Encounter Summary ---
Author Organization [facility] Address [address] [place] [address] Care Team Providers Care Bat Lathe Operator Name Role Phone Unavailable Primary Care Provider Unavailabl e Encounter Details Date Type Department Care Team (Late st Contact Info) Description 02/14/2022 Lab Requisition [facility] Pathology & Laboratory Medicine - [facility] [address] [place] [address] Outr Resulting Lab, Provider Social History Tobacco [...] Procedure Name Priority Date/Time Associated Diagnosis Comments HOLD SST Today 02/14/2022 9:00 EDT HEPATITIS C AB W REFLEX TO HCV RNA BY PCR Today 02/14/2022 9:00 EDT HEPATITIS A TOTAL ANTIBODY W REFLEX Today 02/14/2022 9:00 EDT HEPATITIS B SURFACE ANTIGEN Today 02/14/2022 9:00 EDT documented in this encounter Results * HOLD SST (02/14/2022 9:00 EDT) Hold Hold 02/14/2022 22:46 EDT [facility] Blood VENOUS BLOOD / Unknown 02/14/2022 9:00 EDT 02/14/2022 21:43 EDT us Provider Outr Resulting Lab LAB INFO SERVICE AND SUPPORT & PHONE RESULT Final Result Performing Organization Address [facility] Co de Phone Number [facility] [address] [place] [address] * HEPATITIS B SURFACE ANTIGEN (02/14/2022 9:00 EDT) Hep B Surface Ag Negative Negative 02/15/2022 9:37 EDT [facility] Blood VENOUS BLOOD / Unknown 02/14/2022 9:00 EDT 02/14/2022 21:29 EDT us Provider Outr Resulting Lab CHEMISTRY & BLOOD GA S ORDERABLES Final Result Performing Organization Address [facility] Co de Phone Number [facility] [address] [place] [address] * HEPATITIS C AB W REFLEX TO HCV RNA BY PCR (02/14/2022 9:00 EDT) Hep C Antibody Negative Negative 02/15/2022 10:20 EDT [facility] Blood VENOUS BLOOD / Unknown 02/14/2022 9:00 EDT 02/14/2022 21:29 EDT us Provider Outr Resulting Lab CHEMISTRY & BLOOD GA S ORDERABLES Final Result Performing Organization Address [facility] de Phone Number [facility] [address] [place] [address] * HEPATITIS A TOTAL ANTIBODY W REFLEX (02/14/2022 9:00 EDT) Hepatitis A Antibody, Total Negative Negative 02/15/2022 11:17 EDT [facility] Blood VENOUS BLOOD / Unknown 02/14/2022 9:00 EDT 02/14/2022 21:43 EDT Narrative [facility] - 02/15/2022 11:17 EDT The result of this assay can be falsely elevated (Positive) due to the consumption of Biotin. us Provider Outr Resulting Lab CHEMISTRY & BLOOD GA S ORDERABLES Final Result [facility] [address] [place] [address] documented in this encounter Visit Diagnoses Not on filedocumented in this encounter
--- OUTSIDE RECORDS SUMMARY | 2024-11-22 19:26 | XMS_ITS | Encounter Summary ---
Author Organization [facility] Address [address] [place] [address] Care Team Providers Care Rotary Driller Name Role Phone Unavailable Primary Care Provider Unavailabl e Encounter Details Date Type Department Care Team (Late st Contact Info) Description 02/28/2022 Lab Requisition [facility] Pathology & Laboratory Medicine - [facility] [address] [place] [address] Outr Resulting Lab, Provider Social History Tobacco [...] RNA BY PCR Routine 02/28/2022 9:17 EDT documented in this encounter Results * HEPATITIS C AB W REFLEX TO HCV RNA BY PCR (02/28/2022 9:17 EDT) Hep C Antibody Negative Negative 03/01/2022 9:59 EDT [facility] Blood VENOUS BLOOD / Unknown 02/28/2022 9:17 EDT 02/28/2022 17:29 EDT us Provider Outr Resulting Lab CHEMISTRY & BLOOD GA S ORDERABLES Final Result [facility] [address] [place] [address] documented in this encounter Visit Diagnoses Not on filedocumented in this encounter
--- OUTSIDE RECORDS SUMMARY | 2024-11-22 19:26 | XMS_ITS | Clinical Summary ---
Author Organization [facility] Address [address] [place] [address] Care Team Providers Care House Cleaner Supervisor Name Role Phone Unavailable Primary Care Provider Unavailabl e Social History Tobacco Use Types Packs/Day Years Used Date Smoking Tobacco: Never Assessed Sex and Gender Information Value Date Recorded Sex Assigned at Not on file Legal Sex Male 20:35 EDT Gender Identity Not on file Sexual Orientation Not on file Plan of Treatment Health Maintenance Due Date Last Done Comments Hepatitis B Vaccine (1 of 3 - 19+ 3-dose series) 1984 COVID-19 Vaccine ( season) 2024 Hepatitis C Screen Completed 02/28/2022, 02/14/2022 Procedures Procedure Name Priority Date/Time Associated Diagnosis Comments HEPATITIS C AB W REFLEX TO HCV RNA BY PCR Routine 02/28/2022 9:17 EDT from Last 3 Months or Most Recently Relevant to Health Maintenance Results * HEPATITIS C AB W REFLEX TO HCV RNA BY PCR (02/28/2022 9:17 EDT) Hep C Antibody Negative Negative 03/01/2022 9:59 EDT [facility] Blood VENOUS BLOOD / Unknown 02/28/2022 9:17 EDT 02/28/2022 17:29 EDT us Provider Outr Resulting Lab CHEMISTRY & BLOOD GA S ORDERABLES Final Result [facility] [address] [place] [address] from Last 3 Months or Most Recently Relevant to Health Maintenance
--- OUTSIDE RECORDS SUMMARY | 2024-11-22 19:26 | XMS_ITS | Encounter Summary ---
Author Organization [facility] Address [address] [place] [address] Care Team Providers Care Anesthesiology Physician Name Role Phone Unavailable Primary Care Provider Unavailabl e Encounter Details Date Type Department Care Team (Late st Contact Info) Description 02/13/2022 Lab Requisition [facility] Pathology & Laboratory Medicine - [facility] [address] [place] [address] Outr Resulting Lab, Provider Social History Tobacco [...] Procedure Name Priority Date/Time Associated Diagnosis Comments PSA TOTAL, DIAGNOSTIC Routine 02/12/2022 10:45 EDT documented in this encounter Results * PSA TOTAL, DIAGNOSTIC (02/12/2022 10:45 EDT) PSA 3.1 0.0 - 3.5 ng/mL 02/13/2022 18:20 EDT [facility] Blood VENOUS BLOOD / Unknown 02/12/2022 10:45 EDT 02/13/2022 16:46 EDT Narrative [facility] - 02/13/2022 18:20 EDT NOTE: Serum PSA concentration should not be interpreted as absolute evidence for the presence or absence of malignant disease. Assayed on Siemens ADVIA Centaur XPT using chemiluminescent technology.??Values obtained by using different assay methods cannot be used interchangeably. us Provider Outr Resulting Lab CHEMISTRY & BLOOD GA S ORDERABLES Final Result [facility] [address] [place] [address] documented in this encounter Visit Diagnoses Not on filedocumented in this encounter
--- OUTSIDE RECORDS SUMMARY | 2024-11-22 19:26 | XMS_ITS | Clinical Summary ---
Author Organization [facility] [place] [address] Care Team Providers Care Group Home Manager Name Role Phone Malick Ruano MD Primary Care Provider [phone] Allergies No known active allergies Medications Medication Sig Dispensed Refills Start Date End Date Status lisinopril-hydrochlorot hiazide (PRINZIDE;ZESTORETIC) 20-12.5 mg per tablet 1 Tablet(s), PO, Once daily 12/03/2006 Active Social History Tobacco Use Types Packs/Day Years Used Date Smoking Tobacco: Never Assessed Sex and Gender Information Value Date Recorded Sex Assigned at Not on file Gender Identity Not on file Sexual Orientation Not on file Plan of Treatment Health Maintenance Due Date Last Done Comments CT Colonography 1965 Colonoscopy 1965 Colorectal Cancer Screening 1965 FIT DNA 1965 FIT 1965 Sigmoidoscopy (10 year) with FIT yearly 1965 Sigmoidoscopy 1965 HIV screen 1983 Hepatitis C Screening 1983 Lipid Screening 1983 Hepatitis B vaccine (0-59 yrs) (1) 1984 Tetanus/Diphtheria/Pertussis Vaccines (1 - Tdap) 03/03 Zoster vaccine (1 of 2) 2015 Advance Directive 2020 Covid-19 Vaccine ( - 2023- season) 2024 Influenza (Flu) vaccine (1 o f 1 - Influenza standard series) 07/25/2024 Care Teams Group Home Manager Relationship Specialty Start Date End Date Malcik Ruano MD [address] [place] [address] PCP - General Family Medicine 03/05/24
== END 2024-11-22 21:22 | disposition home or self-care (01) ==
PROVIDERS: Emergency Provider Emergency Medicine; PCP Family Medicine
DX: S02.40FA Zygomatic fracture, left side, initial encounter for closed fracture; W10.8XXA Fall (on) (from) other stairs and steps, initial encounter; I10 Essential (primary) hypertension; F10.120 Alcohol abuse with intoxication, uncomplicated; S00.83XA Contusion of other part of head, initial encounter
CPT/HCPCS: 80053; 83690; 99285; 70450; 71045; 72125; 74177; 80320; 83735; 85025; 99284

== ENCOUNTER 2025-04-25 11:28 | Emergency (ER) | payer BC, SELFPAY ==
[2025-04-25 11:30] VITALS: BP 166/101; PULSE 111; RESP 17; TEMP 36.7; O2SAT 98
[2025-04-25 11:47] VITALS: PULSE 118; RESP 20; TEMP 36.9; O2SAT 98
[2025-04-25 12:12] LABS: Abs Immature Grans 0.02 10^3/uL (0.0-0.06); Absolute Basophil Count 0.08 10^3/uL (0.0-0.2); Absolute Eosinophil Count 0.68 10^3/uL (0.0-0.7); Absolute Lymphocyte Count 0.94 10^3/uL (1.2-3.4); Absolute Monocyte Count 0.65 10^3/uL (0.1-0.8); Absolute Neutrophil Count 6.68 10^3/uL (1.2-6.7); Basophils % 0.9 %; Eosinophils % 7.5 %; HCT 43.5 % (40.0-50.0); HGB 15.3 g/dL (13.5-17.5); Immature Grans % 0.2 %; Lymphocytes % 10.4 %; MCH 32.1 pg (27.0-33.0); MCHC 35.2 % (32.0-36.0); MCV 91 fL (80-95); MPV 9.6 fL (8.0-11.0); Monocytes % 7.2 %; Neutrophils % 73.8 %; Platelet Count 298 10^3/uL (130-400); RBC 4.76 10^6/uL (4.36-5.78); RDW 11.7 % (11.8-14.1); RDW-SD 39.1 fL; WBC 9.05 10^3/uL (4.4-10.8)
[2025-04-25] MEDS: Acetaminophen 500 MG TAB PO (12:19)
[2025-04-25 12:20] VITALS: BP 129/82; PULSE 111; RESP 16; O2SAT 98
[2025-04-25 12:27] LABS: ALT 173 U/L (16-63); AST 577 U/L (15-37); Alkaline Phosphatase 112 U/L (46-116); Anion Gap 15.8 mmol/L (3-11); BUN 10 mg/dL (7-18); Bilirubin, Total 0.4 mg/dL (0.2-1.0); C-Reactive Protein 1.32 mg/dL (<or=0.5); CO2 22.2 mmol/L (21.0-32.0); CREATININE 0.7 mg/dL (0.70-1.30); Calcium 9.5 mg/dL (8.5-10.1); Chloride 95 mmol/L (98-107); Estimated GFR 105.49 (mL/min/1.73m2); Glucose 152 mg/dL (74-106); Potassium 3.3 mmol/L (3.5-5.1); Sodium 133 mmol/L (136-145); Total Protein 7.8 g/dL (6.4-8.2)
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
[2025-04-25 12:58] LABS: ETHANOL BLOOD 44.5 mg/dL (<10)
[2025-04-25] MEDS: Normal Saline 1,000 ML 1000 ML IV (12:58)
[2025-04-25 13:06] LABS: Acetaminophen < 2 ug/mL (10-30)
[2025-04-25 13:37] VITALS: BP 164/92; PULSE 84; RESP 14; O2SAT 99
[2025-04-25 13:38] VITALS: BP 164/92; PULSE 84; RESP 14; O2SAT 99
[2025-04-25 13:39] LABS: Creatine Kinase > 10000 U/L (39-308)
[2025-04-25 14:11] VITALS: BP 151/93; PULSE 88; RESP 16; O2SAT 98
[2025-04-25 15:40] LABS: Lab Add On Test DONE
[2025-04-25 15:55] LABS: Magnesium 1.6 mg/dL (1.8-2.4); PHOSPHORUS 3.3 mg/dL (2.6-4.7)
[2025-04-26 03:47] LABS: Hepatitis A Antibody IgM Negative (Negative); Hepatitis B Core Antibody Negative (Negative); Hepatitis B surface Ag Negative (Negative); Hepatitis C Ab w Rflx HCV PCR Negative (Negative)
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
== END 2025-04-25 14:43 | disposition left against medical advice (07) ==
PROVIDERS: Emergency Provider Physician Assistant; PCP Family Medicine
DX: T24.232A Burn of second degree of left lower leg, initial encounter (principal); T31.0 Burns involving less than 10% of body surface; M62.82 Rhabdomyolysis; L03.116 Cellulitis of left lower limb; F17.290 Nicotine dependence, other tobacco product, uncomplicated; Z53.29 Procedure and treatment not carried out because of patient's decision for other reasons
CPT/HCPCS: 36415; 80053; 82550; 86704; 86709; 86803; 87340; 99284; 73590; 80320; 80329; 83735; 84100; 85025; 86140

== ENCOUNTER 2025-06-08 01:49 | Outpatient (CLI) | payer BC, SELFPAY ==
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
== END 2025-06-08 02:09 ==
PROVIDERS: PCP Family Medicine; Visit Provider Nurse Practitioner Family
DX: M54.6 Pain in thoracic spine (principal); S22.31XA Fracture of one rib, right side, initial encounter for closed fracture; X58.XXXA Exposure to other specified factors, initial encounter
CPT/HCPCS: 71046; 71100